=== PATIENT | male | born 1945 | race Caucasian/White ===

== ENCOUNTER → 2017-06-29 12:31 | Emergency (ER) | payer MEDICARE, BC ==
[~2017-06-29 12:31] MED LIST: NS 0.9% 1000 ML* 1,000 ML IV ONE; Potassium Chlor TAB* 20 MEQ TAB.ER PO ONE
--- NOTE | 2017-06-29 13:55 | RAD ---
Indication: Chest pain. Defibrillator went off while playing golf. Comparison: No relevant prior exams available on the [facility] PACS for comparison. Technique: Upright AP 1330 hours Report: RIGHT atrial and RIGHT ventricular level leads of LEFT chest wall pacemaker device appear intact. Upper normal heart size accounting for portable AP technique. Unremarkable central pulmonary vasculature and mediastinal contours. Clear lungs and pleural spaces. Negative for pneumothorax. IMPRESSION: No evidence for acute intrathoracic disease.
[2017-06-29 14:11] LABS: Hematocrit 33 % (42-52); Hemoglobin 11.7 g/dl (14.0-18.0); Mean Corpuscular HGB Conc 35 g/dl (31-36); Mean Corpuscular Hemoglobin 34 pg (27-31); Mean Corpuscular Volume 96 fL (80-94); Mean Platelet Volume 7 um3 (7.4-10.4); Red Blood Count 3.47 10^6/ul (4.0-5.4); Red Cell Distribution Width 16 % (10.5-15); White Blood Count 9.3 10^3/ul (3.5-10.8)
[2017-06-29 14:44] LABS: Albumin 3.7 g/dL (3.2-5.2); BUN/Creatinine Ratio 18.9 (8-20); Calcium 9.2 mg/dL (8.6-10.3); EGFR African American 99.9 (>60); EGFR Non-African American 77.7 (>60); Globulin 3.2 g/dL (2-4); Potassium 3.9 mmol/L (3.5-5.0); Total Protein 6.9 g/dL (6.4-8.9)
[2017-06-29 14:46] LABS: Troponin I 0.01 ng/mL (<0.04)
[2017-06-29 14:58] LABS: TSH (Thyroid Stimulating Horm) 2.64 mcIU/mL (0.34-5.60)
--- NOTE | 2017-06-29 18:25 | ED ---
Armando Alexander Angela, scribed for Corey Lobo MD on 06/29/17 at 1342 . Palpitations / Dysrhythmia - HPI Summary HPI Summary: This pt is a 71 y/o male presenting to [facility] c/o defibrillator firing at around 12:00 PM today. Pt notes that he was playing golf in [place] walking on the field but was not on exertion when his defibrillator fired. This is the first time it has fired. He reports seeing a flash and then falling down, but no head strike or LOC. Pt states presure on the right side of his chest. Pt denies abd pain, back pain, SOB, nausea, weakness or numbness. He notes his defibrillator was placed 5 years ago, and it's a [employer] defibrillator pacemaker. Pt is not anticoagulated. Pt is not on chemotherapy. - History of Current Complaint Time Seen by Provider: 06/29/17 13:14 Hx Obtained From: Patient Onset/Duration: Sudden Onset Aggravating: Nothing Alleviating: Nothing Associated Signs & Symptoms: Chest Pain - chest pressure on the right side - Allergy/Home Medications Allergies/Adverse Reactions: Allergies Allergy/AdvReac Type Severity Reaction Status Date / Time No Known Allergies Allergy Verified 06/29/17 15:35 Home Medications: Home Medications Aspirin Low Dose CHEW TAB* [Aspirin Low Dose TAB*] 81 mg PO DAILY 06/29/17 [ History Confirmed 06/29/17] Bicalutamide (NF) [Casodex (NF)] 50 mg PO DAILY 06/29/17 [History Confirmed ] Ibuprofen TAB* [Advil TAB*] 400 mg PO TID PRN 06/29/17 [History Confirmed ] Levothyroxine TAB* [Synthroid TAB*] 75 mcg PO QAM 06/29/17 [History Confirmed ] Linagliptin (NF) [Tradjenta (NF)] 5 mg PO DAILY 06/29/17 [History Confirmed ] Liraglutide (NF) [Victoza (NF)] 18 mg SUBCUT DAILY 06/29/17 [History Confirmed 06/29/17] Methotrexate TAB* 2.5 mg PO Q7D 06/29/17 [History Confirmed 06/29/17] Pravastatin (NF) [Pravachol (NF)] 20 mg PO DAILY 06/29/17 [History Confirmed ] Sildenafil (NF) [Viagra (NF)] 100 mg PO DAILY PRN 06/29/17 [History Confirmed ] Tamsulosin CAP* [Flomax CAP*] 0.4 mg PO DAILY 06/29/17 [History Confirmed ] PMH/Surg Hx/FS Hx/Imm Hx Endocrine/Hematology History: Denies: Hx Diabetes Cardiovascular History: Reports: Other Cardiovascular Problems/Disorders - Defibrillator - Cancer History Cancer Type, 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, 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 Infectious Disease History: Denies: Traveled Outside the [place] in Last 30 Days - Social History Substance Use Type: Reports: None Review of Systems Negative: Fever, Chills Negative: Blurred Vision ENT: Negative Positive: Chest Pain - chest pressure on the right side Negative: Shortness Of Breath Negative: Abdominal Pain, Nausea Positive: no symptoms reported Negative: Myalgia, Decreased ROM, Edema Skin: Negative Negative: Headache, Weakness, Paresthesia, Numbness Psychological: Normal All Other Systems Reviewed And Are Negative: Yes Physical Exam - Summary Physical Exam Summary: The patient is well-nourished in no acute distress and in no acute pain. The skin is warm and dry and skin color reflects adequate perfusion. HEENT: The head is normocephalic and atraumatic. The pupils are equal and reactive. The conjunctivae are clear and without drainage. Nares are patent and without drainage. Mouth reveals moist mucous membranes and the throat is without erythema and exudate. The external ears are intact. The ear canals are patent and without drainage. The tympanic membranes are intact. Neck is supple with full range of motion and non-tender. There are no carotid bruits. There is no neck vein distension. Respiratory: Chest is non-tender. Lungs are clear to auscultation and breath sounds are symmetrical and equal. Cardiovascular: Hear is regular rate and rhythm. There is no murmur or rub auscultated. There is no peripheral edema and pulses are symmetrical and equal. Abdomen: The abdomen is soft and non-tender. There are normal bowel sounds heard in all four quadrants and there is no organomegaly palpated. Musculoskeletal: There is no back pain noted. Extremities are non-tender with full range of motion. There is good capillary refill. There is no peripheral edema or calf tenderness elicited. There is no evidence of trauma. Neurological: Patient is alert and oriented to person, place and time. The patient has symmetrical motor strength in all four extremities. Psychiatric: The patient has an appropriate affect and does not exhibit any anxiety or depression. Triage Information Reviewed: Yes Vital Signs On Initial Exam: Initial Vitals BP 124/59 06/29/17 13:23 Vital Signs Reviewed: Yes Diagnostics - Vital Signs Vital Signs Temp Pulse Resp BP Pulse Ox 06/29/17 16:00 72 17 144/74 97 06/29/17 15:30 71 18 131/63 96 06/29/17 15:16 140/54 06/29/17 15:13 81 143/92 06/29/17 15:12 84 18 96 06/29/17 15:09 73 19 143/92 95 06/29/17 15:07 73 17 131/74 96 06/29/17 15:05 74 20 134/72 95 06/29/17 15:00 75 18 93 06/29/17 14:00 74 18 95 06/29/17 13:49 97.8 F 73 18 130/67 97 06/29/17 13:30 77 19 131/84 96 06/29/17 13:25 75 17 96 06/29/17 13:23 124/59 - Laboratory Lab Results: Lab Results 06/29/17 06/29/17 06/29/17 Range/Units 14:00 14:00 14:00 WBC 9.3 (3.5-10.8) 10^3/ul RBC 3.47 L (4.0-5.4) 10^6/ul Hgb 11.7 L (14.0-18.0) g/dl Hct 33 L (42-52) % MCV 96 H (80-94) fL MCH 34 H (27-31) pg MCHC 35 (31-36) g/dl RDW 16 H (10.5-15) % Plt Count 231 (150-450) 10^3/ul MPV 7 L (7.4-10.4) um3 Neut % (Auto) 83.6 H (38-83) % Lymph % (Auto) 7.1 L (25-47) % Wood % (Auto) 7.7 (1-9) % Eos % (Auto) 1.1 (0-6) % Baso % (Auto) 0.5 (0-2) % Absolute Neuts (auto) 7.8 H (1.5-7.7) 10^3/ul Absolute Lymphs (auto) 0.7 L (1.0-4.8) 10^3/ul Absolute Monos (auto) 0.7 (0-0.8) 10^3/ul Absolute Eos (auto) 0.1 (0-0.6) 10^3/ul Absolute Basos (auto) 0 (0-0.2) 10^3/ul Absolute Nucleated RBC 0.01 10^3/ul Nucleated RBC % 0.1 INR (Anticoag Therapy) 0.96 (0.89-1.11) Sodium (133-145) mmol/L Potassium (3.5-5.0) mmol/L Chloride (101-111) mmol/L Carbon Dioxide (22-32) mmol/L Anion Gap (2-11) mmol/L BUN (6-24) mg/dL Creatinine (0.67-1.17) mg/dL Est GFR ( Amer) (>60) Est GFR (Non-Af Amer) (>60) BUN/Creatinine Ratio (8-20) Glucose (70-100) mg/dL Lactic Acid (0.5-2.0) mmol/L Calcium (8.6-10.3) mg/dL Magnesium (1.9-2.7) mg/dL Total Bilirubin (0.2-1.0) mg/dL AST (13-39) U/L ALT (7-52) U/L Alkaline Phosphatase (34-104) U/L Troponin I (<0.04) ng/mL B-Natriuretic Peptide 77 ( - 100) pg/mL Total Protein (6.4-8.9) g/dL Albumin (3.2-5.2) g/dL Globulin (2-4) g/dL Albumin/Globulin Ratio (1-3) TSH (0.34-5.60) mcIU/mL 06/29/17 06/29/17 Range/Units 14:00 14:00 WBC (3.5-10.8) 10^3/ul RBC (4.0-5.4) 10^6/ul Hgb (14.0-18.0) g/dl Hct (42-52) % MCV (80-94) fL MCH (27-31) pg MCHC (31-36) g/dl RDW (10.5-15) % Plt Count (150-450) 10^3/ul MPV (7.4-10.4) um3 Neut % (Auto) (38-83) % Lymph % (Auto) (25-47) % Wood % (Auto) (1-9) % Eos % (Auto) (0-6) % Baso % (Auto) (0-2) % Absolute Neuts (auto) (1.5-7.7) 10^3/ul Absolute Lymphs (auto) (1.0-4.8) 10^3/ul Absolute Monos (auto) (0-0.8) 10^3/ul Absolute Eos (auto) (0-0.6) 10^3/ul Absolute Basos (auto) (0-0.2) 10^3/ul Absolute Nucleated RBC 10^3/ul Nucleated RBC % INR (Anticoag Therapy) (0.89-1.11) Sodium 134 (133-145) mmol/L Potassium 3.9 (3.5-5.0) mmol/L Chloride 104 (101-111) mmol/L Carbon Dioxide 23 (22-32) mmol/L Anion Gap 7 (2-11) mmol/L BUN 18 (6-24) mg/dL Creatinine 0.95 (0.67-1.17) mg/dL Est GFR ( Amer) 99.9 (>60) Est GFR (Non-Af Amer) 77.7 (>60) BUN/Creatinine Ratio 18.9 (8-20) Glucose 160 H (70-100) mg/dL Lactic Acid 2.1 H* (0.5-2.0) mmol/L Calcium 9.2 (8.6-10.3) mg/dL Magnesium 2.0 (1.9-2.7) mg/dL Total Bilirubin 1.00 (0.2-1.0) mg/dL AST 17 (13-39) U/L ALT 21 (7-52) U/L Alkaline Phosphatase 47 (34-104) U/L Troponin I 0.01 (<0.04) ng/mL B-Natriuretic Peptide ( - 100) pg/mL Total Protein 6.9 (6.4-8.9) g/dL Albumin 3.7 (3.2-5.2) g/dL Globulin 3.2 (2-4) g/dL Albumin/Globulin Ratio 1.2 (1-3) TSH 2.64 (0.34-5.60) mcIU/mL Result Diagrams: 06/29/17 14:00 06/29/17 14:00 Lab Statement: Any lab studies that have been ordered have been reviewed, and results considered in the medical decision making process. - Radiology Chest XR Xray Interpretation: No Acute Changes - IMPRESSION: No evidence for acute intrathoracic disease. ED physician has reviewed this radiology report and agrees. Radiology Interpretation Completed By: Radiologist - EKG 13:50 Cardiac Rate: NL - 76 bpm EKG Rhythm: Sinus Rhythm EKG Interpretation: T wave inversion in V3-V6. Normal axis. No STEMI EKG Comparison: Other - No prior EKG for comparison Re-Evaluation - Re-Evaluation First Eval Re-Evaluation Time: 16:07 Comment: I reviewed the results with the pt. I explained to the pt that I spoke to Dr. Armstrong, his claim clinician, and that he wants the pt to increase his dose of Metoprolol to 50 mg BID. Pt is agreeable with this plan. Course/Dx - Course Course Of Treatment: This pt is a 71 y/o male presenting to [facility] c/o defibrillator firing at around 12:00 PM today. Pt notes that he was playing golf in [place] walking on the field but was not on exertion when his defibrillator fired. This is the first time it has fired. Dr. Boland came to interrogate pts pacemaker. There were two runs of ventricular tachycardia. The first run was overdriven with pacemaker and the second was what caused the shock. She recommends that we call pts claim clinician. I spoke with Dr. Armstrong (pt's claim clinician) who has advised to increase Metoprolol to [address] Armstrong will call the pt to set up an appointment. The pt understands and is agreeable to this plan. -I received a call back from [facility] [facility] patient service representative and was told the pt's rhythm was supraventricular tachycardia , but Dr. Boland reported it was ventricular tachycardia. - Diagnoses Differential Diagnosis/HQI/PQRI: Positive: Cardiomyopathy, Congestive Heart Failure, Hypokalemia, Paroxymal SVT, V-Tach Provider Diagnoses: Ventricular tachycardia, Cardiomyopathy - Physician Notifications Discussed Care Of Patient With: Treasure Boland Time Discussed With Above Provider: 14:10 Instructed by Provider To: Other - I discussed the pt's case with Dr. Boland, who will come see the pt in the ED. Discharge - Discharge Plan Condition: Stable Disposition: HOME Prescriptions: Metoprolol Succinate XL TAB* [Toprol XL TAB*] 50 mg PO BID #60 tab.xl Patient Education Materials: Tachycardia (ED) Referrals: Non Staff,Doctor [Primary Care Provider] - Additional Instructions: Dr. Armstrong will be calling you to schedule an appointment, please follow up with him. Take Metoprolol 50 mg two times a day. The documentation as recorded by the Armando chen Angela accurately reflects the service I personally performed and the decisions made by me, Corey Lobo MD.
== END | disposition home or self-care (01) ==
LOC: ED 12:31
DX: I47.2 Ventricular tachycardia (principal); I42.9 Cardiomyopathy, unspecified; Z79.82 Long term (current) use of aspirin; E03.9 Hypothyroidism, unspecified; Z85.46 Personal history of malignant neoplasm of prostate; Z95.810 Presence of automatic (implantable) cardiac defibrillator
CPT/HCPCS: 36415; 71010; 80053; 83605; 83735; 83880; 84443; 84484; 85025; 85610; 93005; 96360; 99282; A9270-GY